=== PATIENT | male | born 1945 | race Caucasian/White ===

== ENCOUNTER 2017-05-05 11:45 | Emergency (ER) | payer MEDICARE, OTHER ==
[2017-05-05 11:58] VITALS: BMI 30.7
--- NOTE | 2017-05-05 12:38 | PDOC ---
Attending Attestation - HPI HPI: 05/05/17 13:46 The patient is a 71 year old male with a significant PMH of HTN and hyperlipidemia who presents to the emergency department with hematuria beginning approximately 12 hours ago. He reports about 3 episodes of hematuria since 1AM this morning. He denies dysuria. He denies any other complaints. Allergies: NKDA PCP: Dr. Andre Ho Urologist: Dr. Nassar - Physicial Exam PE: 05/05/17 14:27 GENERAL: Awake, alert, and fully oriented, in no acute distress HEAD: No signs of trauma EYES: PERRLA, EOMI, sclera anicteric, conjunctiva clear ENT: Auricles normal inspection, hearing grossly normal, nares patent, oropharynx clear without exudates. Moist mucosa NECK: Normal ROM, supple, no lymphadenopathy, JVD, or masses LUNGS: Breath sounds equal, clear to auscultation bilaterally. No wheezes, and no crackles HEART: Regular rate and rhythm, normal S1 and S2, no murmurs, rubs or gallops ABDOMEN: Soft, nontender, normoactive bowel sounds. No guarding, no rebound. No masses EXTREMITIES: Normal range of motion, no edema. No clubbing or cyanosis. No cords, erythema, or tenderness NEUROLOGICAL: Cranial nerves II through XII grossly intact. Normal speech, normal gait SKIN: Warm, Dry, normal turgor, no rashes or lesions noted. - Medical Decision Making 05/05/17 14:[address] John regarding this patient. <Eliezer Hernandez - Last Filed: 05/05/17 14:33> - Resident Resident Name: Jorge Ortega - ED Attending Attestation I have performed the following: I have examined & evaluated the patient, The case was reviewed & discussed with the resident, I agree w/resident's findings & plan, Exceptions are as noted - Medical Decision Making 05/05/17 12:38 I, Dr. Radha Torres, DO, attest that this document has been prepared under my direction and personally reviewed by me in its entirety. I further attest, that it accurately reflects all work, treatment, procedures and medical decision -making performed by me. 05/05/17 15:04 a/p: 71yo male with painless hematuria -will check labs and UA -hx of prostate CA -will obtain noncon ct to r/o further worsening of prostate ca -will discuss with urology pt nontoxic in appearance <Radha Torres - Last Filed: 05/05/17 15:04>
[2017-05-05] MEDS ORDERED: SODIUM CHLORIDE 0.9% 1000 ML INFUS.BAG IV ONE (12:42)
--- NOTE | 2017-05-05 12:52 | PDOC ---
History of Present Illness - General Chief Complaint: Hematuria Stated Complaint: URINARY PROBLEM Time Seen by Provider: 05/05/17 12:31 History Source: Patient Exam Limitations: No Limitations - History of Present Illness Initial Comments: 05/05/17 12:43 The patient is a 71M with a PMH of HTN and HLD who presents to the ED with complaints of hematuria since 1am this morning. He denies any trauma to the area. He has had 3 episodes of painless hematuria since and states that his most recent episode of urination was much less. He also admits to on and off kidney pain, R > L. He currently denies any pain including CP, renal pain, SOB, nausea, vomiting, lightheadedness, palpitations. He has no other complaints. Urologist: Dr. Nassar PCP: Dr. Andre Ho Past History - Past Medical History Allergies/Adverse Reactions: Allergies Allergy/AdvReac Type Severity Reaction Status Date / Time avocado Allergy Mild Nausea Verified 05/05/17 11:59 Home Medications: Ambulatory Orders Aspirin [ASA -] 81 mg PO DAILY 02/03/13 Lisinopril [Prinivil -] 40 mg PO DAILY 02/03/13 Metoprolol Tartrate [Lopressor -] 50 mg PO BID 02/03/13 Omeprazole [Prilosec (RX)] 20 mg PO DAILY 02/03/13 Tamsulosin HCl [Flomax -] 0.4 mg PO DAILY 02/03/13 Nifedipine [Nifedical Xl] 30 mg PO DAILY 02/10/15 Atorvastatin Ca [Lipitor] 20 mg PO HS #30 tablet 02/18/15 Anemia: No Asthma: No Cancer: No Cardiac Disorders: No CVA: No COPD: No CHF: No Dementia: No Diabetes: No GI Disorders: No Disorders: Yes (BPH) HTN: Yes Hypercholesterolemia: Yes Liver Disease: No Seizures: No Thyroid Disease: No - Surgical History Abdominal Surgery: Yes Appendectomy: Yes Cardiac Surgery: Yes (ANGIOGRAM) Cholecystectomy: No Lung Surgery: No Neurologic Surgery: No Orthopedic Surgery: No - Suicide/Smoking/Psychosocial Hx Smoking Status: No Smoking History: Never smoked Number of Cigarettes Smoked Daily: 0 Information on smoking cessation initiated: No Hx Alcohol Use: No Drug/Substance Use Hx: No Substance Use Type: None Hx Substance Use Treatment: No Review of Systems - Review of Systems Able to Perform ROS?: Yes Comments:: 05/05/17 12:54 GENERAL/CONSTITUTIONAL: No fever or chills. No weakness. HEAD, EYES, EARS, NOSE AND THROAT: No change in vision. No ear pain or discharge. No sore throat. GASTROINTESTINAL: No nausea, vomiting, diarrhea, constipation, or abdominal pain. GENITOURINARY: Positive for hematuria. No dysuria, frequency, or change in urination. CARDIOVASCULAR: No chest pain, palpitations, or lightheadedness. RESPIRATORY: No cough, wheezing, shortness of breath, or hemoptysis. MUSCULOSKELETAL: No joint or muscle swelling or pain. No neck or back pain. SKIN: No rash or lesions. NEUROLOGIC: No headache, numbness, tingling, weakness, loss of consciousness, or change in strength/sensation. ENDOCRINE: No increased thirst. No abnormal weight change. HEMATOLOGIC/LYMPHATIC: No anemia, easy bleeding, or history of blood clots. ALLERGIC/IMMUNOLOGIC: No hives or skin allergy. Is the patient limited Divehi proficient: No *Physical Exam - Vital Signs Last Vital Signs Temp Pulse Resp BP Pulse Ox 98 F 101 H 18 145/96 98 05/05/17 11:55 05/05/17 11:55 05/05/17 11:55 05/05/17 11:55 05/05/17 11:55 - Physical Exam Comments: 05/05/17 13:07 GENERAL: Well developed, well nourished. Awake and alert. No acute distress. HEENT: Normocephalic, atraumatic. Hearing grossly normal. Moist mucous membranes. NECK: Supple. Full ROM. No JVD. Carotid pulses 2+ and symmetric, without bruits. CARDIOVASCULAR: Regular rate and rhythm. No murmurs, rubs, or gallops. Distal pulses are 2+ and symmetric. PULMONARY: No evidence of respiratory distress. Lungs clear to auscultation bilaterally. No wheezing, rales or rhonchi. ABDOMINAL: Soft. Non-tender. Non-distended. No rebound or guarding. No organomegaly. Normoactive bowel sounds. GENITOURINARY: No CVA tenderness bilaterally. MUSCULOSKELETAL: Normal range of motion at all joints. No bony deformities or tenderness. EXTREMITIES: No cyanosis. No clubbing. No edema. No calf tenderness. SKIN: Warm and dry. Normal capillary refill. No rashes. No jaundice. NEUROLOGICAL: Alert, awake, appropriate. Cranial nerves 2-12 intact. Normal speech. Gait is normal without ataxia. PSYCHIATRIC: Cooperative. Good eye contact. Appropriate mood and affect. ED Treatment Course - LABORATORY CBC & Chemistry Diagram: 05/05/17 13:03 05/05/17 13:03 Medical Decision Making - Medical Decision Making 05/05/17 13:08 The patient is a 71 M who is presenting with painless hematuria. I am concerned for bladder CA, renal stone, or hemorrhagic cystitis. Will order labs/imaging to assess patient. 05/05/17 14:35 UA shows 2+ blood. I have spoke with Dr. Yeung who is covering for Dr. Nassar and he says to follow up with the clinic Sunday and they will refer him to a urologist if he has insurance issues. Will inform patient of this call. Hgb stable. Hemodynamically stable. 05/05/17 15:03 CTAP does not show any acute pathology. I instructed him to f/u with Dr. Nassar on Sunday. The patient agrees and is ready for d/c. *DC/Admit/Observation/Transfer Diagnosis at time of Disposition: Hematuria Qualifiers: Hematuria type: other microscopic Qualified Code(s): R31.29 - Other microscopic hematuria; R31.2 - Other microscopic hematuria - Discharge Dispostion Disposition: HOME Condition at time of disposition: Stable Admit: No - Referrals Referrals: Andre Ho MD [Primary Care Provider] - Steve Nassar MD., MD [Staff Physician] - - Patient Instructions Printed Discharge Instructions: DI for Hematuria Additional Instructions: Please return to the ER if symptoms persist, worsen, or new symptoms arise. Please follow up with your primary care physician in 2-3 days. Please follow up with Dr. Nassar on Sunday. Please return to the ER if you have any signs or symptoms of chest pain, shortness of breath, uncontrollable fever, chills, nausea, vomiting, numbness, tingling, or weakness in any part of your body, changes in vision, or slurred speech. - Post Discharge Activity
[2017-05-05 13:16] LABS: BASO # 0.1 # (0.1-1); BASO % 1.3 % (0-2.0); EOS # 0.2 # (0-4.5); EOS % 3.3 % (0-4.5); LYMPH # 1.3 (8-40); MCH 29.9 pg (25.7-33.7); MCHC 32.6 g/dl (32.0-35.9); MEAN CELL VOLUME 91.8 fl (80-96); MONO # 0.5 # (3.8-10.2); NEUT % 59.5 % (42.8-82.8); PLATELET COUNT 256 K/MM3 (134-434); RDW 13.4 % (11.9-15.9)
[2017-05-05 13:21] LABS: URINE APPEARANCE CLEAR; URINE BILIRUBIN NEGATIVE (NEGATIVE); URINE BLOOD 2+ (NEGATIVE); URINE COLOR LTYELLOW; URINE GLUCOSE (UA) NEGATIVE (NEGATIVE); URINE KETONE NEGATIVE (NEGATIVE); URINE LEUK ESTERASE NEGATIVE (NEGATIVE); URINE NITRITE NEGATIVE (NEGATIVE); URINE PROTEIN NEGATIVE (NEGATIVE); URINE UROBILINOGEN NEGATIVE mg/dL (0.2-1.0)
[2017-05-05 13:30] LABS: URINE RBC 150 /hpf (0-3)
[2017-05-05 13:46] LABS: ALBUMIN 3.8 g/dl (3.4-5.0); ANION GAP 9 (8-16); CALCIUM 9.4 mg/dL (8.5-10.1); CO2 27 mmol/L (21-32); GLUCOSE,RANDOM 137 mg/dL (74-106); SGOT/AST 11 U/L (15-37); SGPT/ALT 32 U/L (12-78)
[2017-05-05 13:48] LABS: ALK PHOS 81 U/L (45-117); BILIRUBIN,TOTAL 0.4 mg/dL (0.2-1.0); CREATININE 0.9 mg/dL (0.7-1.3); TOT PROT 6.8 g/dl (6.4-8.2)
[2017-05-05] MEDS ORDERED: ACETAMINOPHEN 325 MG TABLET (FP) PO ONE (15:03)
[2017-05-05] MEDS ORDERED: ACETAMINOPHEN 325 MG TABLET (FP) ONE (15:08)
[2017-05-05 15:15] LABS: URINE LEUK ESTERASE Negative (NEGATIVE)
[2017-05-05 15:23] VITALS: BP 138/92; PULSE 92; TEMP 97.9
== END 2017-05-05 15:23 | disposition home or self-care (01) ==
LOC: JER 11:45
DX: R31.29 Other microscopic hematuria (principal); Z85.46 Personal history of malignant neoplasm of prostate
CPT/HCPCS: 36415; 74176-TC; 80053; 81003; 81015; 85025; 87086; 99283-25

== ENCOUNTER 2018-03-15 11:29 | Observation (INO) | payer MEDICARE ==
--- NOTE | 2018-03-15 12:08 | PDOC ---
History of Present Illness <Niki Diaz - Last Filed: 03/15/18 12:41> - General History Source: Patient Exam Limitations: No Limitations - History of Present Illness Initial Comments: 03/15/18 15:26 This patient is a 72 year old nepali-speaking male, with a PMHx of HTN, HLD, and BPH, who presents with sudden-onset LUE weakness since 11am. The patient states that a similar episode occured 2 months ago in which he experienced the same left sided upper extremitity weakness that lasted for 4-5 hours. He states that it resovled on its on and he did not see a doctor. Today he comes in because this is the second time that he has experieced this LUE weakness. PCP: Chiqui Rios Denies recent headache, chest pain, palpitations, nausea, or vomiting. He denies any recent neck, back, or abdominal pain. He denies any changes in speech , numbness or tingling. <Panchito Palacio - Last Filed: 03/15/18 15:26> - General Chief Complaint: CVA/TIA Stated Complaint: ARM NUMBNESS Time Seen by Provider: 03/15/18 12:01 Past History <Niki Diaz - Last Filed: 03/15/18 12:41> - Past Medical History Anemia: No Asthma: No Cancer: No Cardiac Disorders: No CVA: No COPD: No CHF: No Dementia: No Diabetes: No GI Disorders: No Disorders: Yes (BPH) HTN: Yes Hypercholesterolemia: Yes Liver Disease: No Seizures: No Thyroid Disease: No - Surgical History Abdominal Surgery: Yes Appendectomy: Yes Cardiac Surgery: Yes (ANGIOGRAM) Cholecystectomy: No Lung Surgery: No Neurologic Surgery: No Orthopedic Surgery: No - Suicide/Smoking/Psychosocial Hx Smoking Status: No Smoking History: Former smoker Have you smoked in the past 12 months: No Number of Cigarettes Smoked Daily: 0 Information on smoking cessation initiated: No Hx Alcohol Use: Yes Drug/Substance Use Hx: No Substance Use Type: Alcohol Hx Substance Use Treatment: No <Panchito Palacio - Last Filed: 03/15/18 15:26> - Past Medical History Allergies/Adverse Reactions: Allergies Allergy/AdvReac Type Severity Reaction Status Date / Time avocado Allergy Mild Nausea Verified 03/15/18 11:58 Home Medications: Ambulatory Orders Aspirin [ASA -] 81 mg PO DAILY 02/03/13 Lisinopril [Prinivil -] 40 mg PO DAILY 02/03/13 Metoprolol Tartrate [Lopressor -] 50 mg PO BID 02/03/13 Omeprazole [Prilosec (RX)] 20 mg PO DAILY 02/03/13 Tamsulosin HCl [Flomax -] 0.4 mg PO DAILY 02/03/13 Nifedipine [Nifedical Xl] 30 mg PO DAILY 02/10/15 Atorvastatin Ca [Lipitor] 20 mg PO HS #30 tablet 02/18/15 Review of Systems - Review of Systems Able to Perform ROS?: Yes Comments:: 03/15/18 15:26 CONSTITUTIONAL: No reported: Fever, Chills, Diaphoresis, Generalized Weakness, Malaise, Loss of Appetite HEENT: No reported: Rhinorrhea, Nasal Congestion, Throat Pain, Throat Swelling, Difficulty Swallowing, Mouth Swelling, Ear Pain, Eye Pain, Visual Changes CARDIOVASCULAR: No reported: Chest Pain, Syncope, Palpitations, Irregular Heart Rate, Lightheadedness, Peripheral Edema RESPIRATORY: No reported: Cough, Shortness of Breath, SOB with Exertion, Orthopnea, Wheezing , Stridor, Hemoptysis GASTROINTESTINAL: No reported: Abdominal pain, Abdominal Distension, Nausea, Vomiting, Diarrhea, Constipation, Melena, Hematochezia GENITOURINARY: No reported: Dysuria, Frequency, Urgency, Hesitancy, Flank Pain, Genital Pain MUSCULOSKELETAL: No reported: Myalgia, Arthralgia, Joint Swelling, Back pain, Neck Pain SKIN: No reported: Rash, Itching, Pallor HEMEATOLOGIC/IMMUNOLOGIC: No reported: Easy Bleeding, Easy Bruising, Lymphadenopathy, Frequent infections ENDOCRINE: No reported: Unexplained Weight Gain, Unexplained Weight Loss, Heat Intolerance , Cold Intolerance NEUROLOGIC: Reported: LUE weakness. No reported: Headache, Paresthesias, Vertigo, Lightheadedness, Unsteady Gait, Seizure, Mental Status Changes, Incontinence PSYCHIATRIC: No reported: Anxiety, Depression <Hakeem,Panchito - Last Filed: 03/15/18 15:26> *Physical Exam - Vital Signs Last Vital Signs Temp Pulse Resp BP Pulse Ox 98.2 F 97 H 16 120/55 L 99 03/15/18 11:45 03/15/18 11:45 03/15/18 11:45 03/15/18 11:45 11/02/18 11:45 <Niki Diaz - Last Filed: 03/15/18 12:41> - Vital Signs Last Vital Signs Temp Pulse Resp BP Pulse Ox 98.2 F 97 H 16 120/55 L 99 03/15/18 11:45 03/15/18 11:45 03/15/18 11:45 03/15/18 11:45 03/15/18 11:45 - Physical Exam Comments: 03/15/18 15:26 GENERAL: The patient is awake, alert, and fully oriented, Nontoxic - in no acute distress. HEAD: Normocephalic, atraumatic. EYES: extraocular movements intact, sclera anicteric, conjunctiva clear. ENT: Normal voice, Moist mucous membranes. NECK: Normal range of motion, supple LUNGS: Breath sounds equal, clear to auscultation bilaterally. No wheezes, no rhonchi, no rales. HEART: Regular rate and rhythm, without murmur, rub or gallop. ABDOMEN: Soft, nontender, No guarding, no rebound.No CVA tenderness EXTREMITIES: Normal range of motion, no edema. No cyanosis. No erythema, or tenderness. NEUROLOGICAL: Left arm drift. Equal sensation intact bilaterally. Finger to nose intact. No facial assymetry, Normal speech. PSYCH: Normal mood, normal affect. SKIN: Warm, Dry, normal turgor, <Gage Palacioan - Last Filed: 03/15/18 15:26> NIH Stroke Scale - Last Known Well Date/Time & Onset Date Last Known Well: 03/15/18 Time Last Known Well: 11:00 - Initial Evaluation Level of consciousness: Alert Ask patient the month and their age: Answers both correctly Ask patient to open & close eyes; make fist and let go: Obeys both correctly Best gaze (horizontal eye movement): Normal Visual field testing: No visual field loss Facial paresis (Show teeth/raise eyebrows/close eyes tight): Normal symmetrical movement Motor Function: Left Arm: Drift Motor Function: Right Arm: Normal (extends arm 90 (or 45) degrees for 10 seconds without drift Motor Function: Left Leg: Normal (extends leg 30 degrees for 5 seconds without drift) Motor Function: Right Leg: Normal (extends leg 30 degrees for 5 seconds without drift) Limb Ataxia: No ataxia Sensory(Use pinprick test arms,legs,trunk,face/side to side): Normal Best language (Describe picture, name items, read sentences): No Aphasia Dysarthria (read several words): Normal articulation Extinction and Inattention: No abnormality - Total Score NIH Stroke Scale Score: 1 <Panchito Palacio - Last Filed: 03/15/18 15:26> tPA Exclusion Checklist 0-3hr - Time Elapsed Date last known well: 03/15/18 Time last known well: 11:00 Elaspsed time: Day(s) and 4 Hour(s) and 26 Minutes - Thrombolytic Therapy Candidate Is the patient eligible for Thrombolytic Therapy?: Yes - Exclusion Criteria 0-3hr SBP greater than 185 or DBP greater than 110mmHg despite tx: No Recent IC/spinal surgery,head trauma or stroke w/in last 3mo: No Hx of previous IC hemorrhage, IC neoplasm, AVM or aneurysm: No Active internal bleeding: No Blding diathesis(low plt ct, inc PTT,INR>1.7 or use of NOAC): No Symptoms suggest subarachnoid hemorrhage: No CT demonstrates multilobar infarct(>1/3 cerebral hemiphere): No Arterial puncture at noncompressible site in previous 7 days: No Blood glucose concentration less than 50mg/dL (2.7mmol/L): No - Relative Exclusion Criteria 0-3h Life expectancy <1yr/severe co-morbid illness/SAS ANALYST on admit: No : No Patient/family refused: No Rapid improvement: No Stroke severity too mild: Yes Recent acute DE (w/in previous 3 months): No Seizure at onset with postictal residual neuro impairments: No Major surgery or serious trauma w/in previous 14 days: No Recent GI or hemorrhage (w/in previous 21 days): No - Ineligibility reason(s) Reasons No tPA given: See reason(s) noted above <Panchito Palacio - Last Filed: 03/15/18 15:26> Heart Score/ECG Review - ECG Impressions Comment:: 03/15/18 14:55 Twelve-lead EKG was performed and reviewed by me. There is normal sinus rhythm with a rate of 103 The axis is normal. The intervals are normal. There is normal R wave progression There are no ST or T wave abnormalities. Impression: sinus tachy <Panchito Palacio - Last Filed: 03/15/18 15:26> Critical Care Time/MDM Note - Medical Decision Making Note: Head CT Impression: Mild volume loss. No gross acute intracranial pathology is identified. Correlate clinically to determine further evaluation and follow-up. Reported By: Bonifacio Guthrie MD 03/15/18 1225 <Niki Diaz - Last Filed: 03/15/18 12:41> - Medical Decision Making Note: 03/15/18 12:17 72y M htn, hl, ?tia, prostate BPH in the past presents with sudden onset of L arm weakness approx 1 hr prior to presentation. Pt without other complaints including headache, dizziness, neck pain, back pain, cp sob, palitations, abd pain, n/v, numbness/tingling/weakness. on exam the pt is in no distress has mild drift of the LUE will obtain blood work code webb was alled upon arrival case discussed with dr. Saldaña - agree with mangement NIHSS = 1, will defer tpa at tihs point due to mild sypmtoms pt notes he had similar sypmtoms 2 month ago that resolved spontaneously 03/15/18 13:[address] head negative labs unremrakble pts weakness improved, currently strenght symmetric bl, no drift asa given will admit for TIA workup will notify dr. rios 03/15/18 13:37 dr. rois admits to hospitalist service case discussed with dr. Dial agree with obs admission s <Panchito Palacio - Last Filed: 03/15/18 15:26> *DC/Admit/Observation/Transfer - Attestations Scribe Attestion: 03/15/18 12:43 Documentation prepared by Niki Diaz, acting as medical records director for Panchito Palacio MD. <Niki Diaz - Last Filed: 03/15/18 12:41> - Discharge Dispostion Decision to Admit order: Yes <Panchito Palacio - Last Filed: 03/15/18 15:26> Diagnosis at time of Disposition: TIA (transient ischemic attack) - Discharge Dispostion Condition at time of disposition: Stable
[2018-03-15] MEDS: SODIUM CHLORIDE 1,000 ML IV SCH ×2 (12:24→23:48)
[2018-03-15 12:50] LABS: BASO % 1.1 % (0-2.0); EOS % 3.1 % (0-4.5); HEMATOCRIT 46.6 % (35.4-49); HEMOGLOBIN 15.6 GM/dL (11.7-16.9); LYMPH % 24.9 % (8-40); MCH 30.7 pg (25.7-33.7); MCHC 33.4 g/dl (32.0-35.9); MEAN PLT VOLUME 8.5 fl (7.5-11.1); MONO % 7.1 % (3.8-10.2); NEUT % 63.8 % (42.8-82.8); PLATELET COUNT 290 K/MM3 (134-434); RBC 5.07 M/mm3 (4.00-5.60); RDW 13.4 % (11.9-15.9); WHITE BLOOD COUNT 5.6 K/mm3 (4.0-10.0)
[2018-03-15] MEDS ORDERED: ASPIRIN 81 MG CHEWABLE TABLETS PO ONE (13:05)
[2018-03-15 13:09] LABS: ALBUMIN 3.8 g/dl (3.4-5.0); ALK PHOS 103 U/L (45-117); ANION GAP 10 MMOL/L (8-16); BILIRUBIN,TOTAL 0.5 mg/dL (0.2-1); BLOOD UREA NITROGEN 12 mg/dL (7-18); CHLORIDE 104 mmol/L (98-107); CHOLESTEROL 177 mg/dL (50-200); CO2 24 mmol/L (21-32); CREATININE 0.7 mg/dL (0.55-1.3); GLUCOSE,RANDOM 122 mg/dL (74-106); HDL CHOLESTEROL 64 mg/dL (40-60); POTASSIUM 4.2 mmol/L (3.5-5.1); SGOT/AST 22 U/L (15-37); SGPT/ALT 28 U/L (13-61); SODIUM 137 mmol/L (136-145); TOT PROT 7.2 g/dl (6.4-8.2); TRIGLYCERIDES 135 mg/dL (0-150)
[2018-03-15 13:15] LABS: INR 0.98 (0.83-1.09); PROTHROMBIN TIME (PATIENT) 11.6 SEC (9.7-13.0)
[2018-03-15 13:38] LABS: URINE APPEARANCE CLEAR; URINE BILIRUBIN NEGATIVE (<2.0 mg/dL); URINE COLOR LTYELLOW; URINE GLUCOSE (UA) NEGATIVE (NEGATIVE); URINE KETONE NEGATIVE (NEGATIVE); URINE LEUK ESTERASE NEGATIVE (NEGATIVE); URINE NITRITE NEGATIVE (NEGATIVE); URINE PROTEIN NEGATIVE (NEGATIVE); URINE UROBILINOGEN NEGATIVE mg/dL (0.2-1.0)
--- NOTE | 2018-03-15 13:43 | HP ---
Admitting History and Physical - Primary Care Physician PCP: Chiqui Miller - Admission Chief Complaint: Left Hand nubness History of Present Illness: 72 yrs old non diabetic patient ex smoker H/O HTN, Dyslipedemia present with Left hand weakness no associated head ache, sensory symptoms, chest pain, palpitation, head ache diplopia started a 2-3 hrs prior to arrival to Ed gradually resolved at the time of examination, CT head and EKG normal, at the time of examination weakness resolved, patioent had similar episode 2 months ago that lasted 2-3 hrs resolved without any intervention, never had Neurology or Cardiac w/u in the past, patient is schedule for colonoscopy next wk so he was off ASA for past few days otherwise compliant with meds. - Past Medical History Cardiovascular: Yes: HTN, Hyperlipdemia. No: AFIB, Aneurysm, Aortic Insufficiency, Aortic Stenosis, CAD, CHF, Deep Vein Thrombosis, DE, Mitral Insufficiency, Mitral Stenosis, Murmur, Pulmonary Hypertension, Other Renal/: Yes: BPH. No: Renal Failure, Renal Inusuff, Cancer, Hematuria, Hemodialysis, Neurogenic Bladder, Renal Calculi, UTI, Other - Smoking History Smoking history: Former smoker Have you smoked in the past 12 months: No Aproximately how many cigarettes per day: 0 - Alcohol/Substance Use Hx Alcohol Use: Yes Home Medications - Allergies Allergies/Adverse Reactions: Allergies Allergy/AdvReac Type Severity Reaction Status Date / Time avocado Allergy Mild Nausea Verified 03/15/18 11:58 - Home Medications Home Medications: Ambulatory Orders Aspirin [ASA -] 81 mg PO DAILY 02/03/13 Lisinopril [Prinivil -] 40 mg PO DAILY 02/03/13 Metoprolol Tartrate [Lopressor -] 50 mg PO BID 02/03/13 Omeprazole [Prilosec (RX)] 20 mg PO DAILY 02/03/13 Tamsulosin HCl [Flomax -] 0.4 mg PO DAILY 02/03/13 Nifedipine [Nifedical Xl] 30 mg PO DAILY 02/10/15 Atorvastatin Ca [Lipitor] 20 mg PO HS #30 tablet 02/18/15 Family Disease History - Family Disease History Family History: Unremarkable Review of Systems - Review of Systems Constitutional: denies: Chills, Diaphoresis, Fever, Lethargy HENT: denies: Difficult Swallowing, Ear Discharge, Ear Pain Neck: denies: Decreased ROM, Lumps, Pain on Movement Cardiovascular: denies: Chest Pain, Edema, Shortness of Breath Respiratory: denies: Cough, Exercise Intolerance Gastrointestinal: denies: Abdominal Pain, Bloating Genitourinary: denies: Burning, Discharge Musculoskeletal: denies: Back Pain, Crepitus, Decreased ROM Neurological: reports: Weakness (Left UE). denies: Change in LOC, Change in Speech, Confusion, Dizziness, Headache, Incoordination, Numbness, Parasthesia Hematology/Lymphatic: denies: Easily Bruised, Excessive Bleeding Physical Examination Vital Signs: Vital Signs Temperature 98.2 F 03/15/18 11:45 Pulse Rate 84 03/15/18 12:39 Respiratory Rate 16 03/15/18 12:39 Blood Pressure 112/71 03/15/18 12:39 O2 Sat by Pulse Oximetry (%) 98 03/15/18 12:39 Constitutional: No Distress. No: Anxious, Cachectic HEENT: Atraumatic, Normocephalic Neck: Supple, Trachea Midline. No: Decreased ROM, Lymphadenopathy Cardiovascular: Regular Rate and Rhythm, S1, S2. No: Bruit, JVD, Gallop, Murmur Respiratory: Regular, CTA Bilaterally Gastrointestinal: Normal Bowel Sounds, Soft. No: Tenderness, Epigastrium Extremities: No: Calf Tenderness, no Edema, Peripheral Pulses: Left Doralis Pedis: 1+, Right Dorsalis Pedis: 1+ Neurological: Yes: Alert, Oriented, Motor Strength: WNL, LUE, LLE, RUE, RLE Labs: CBC, BMP 03/15/18 12:24 03/15/18 12:24 Imaging - Results Cat Scan: Report Reviewed (Normal) EKG: Report Reviewed (HR 108 VA 154 QRS [address] T changes) Problem List - Problems (1) TIA (transient ischemic attack) Assessment/Plan: Recurrent symptoms lasted 2 hrs now resolved considering ABCD2 score need inpatient evaluation for stroke admit to [facility], ASA 81 mg Cont Lipitor F/ U ECHO, Carotid Doppler MRI/MRA (as per Neuro if agrees) Code(s): G45.9 - TRANSIENT CEREBRAL ISCHEMIC ATTACK, UNSPECIFIED (2) HTN (hypertension) Assessment/Plan: Optimize BP control will cont Metoprolol target 160/90 Hold CCB and ACEI Code(s): I10 - ESSENTIAL (PRIMARY) HYPERTENSION (3) Hyperlipidemia Assessment/Plan: Cont Lipitor F/U Lipid panel and TSH Code(s): E78.5 - HYPERLIPIDEMIA, UNSPECIFIED (4) Abdominal obesity Assessment/Plan: Nutrional consult as pot patient Code(s): E65 - LOCALIZED ADIPOSITY (5) BPH (benign prostatic hyperplasia) Assessment/Plan: cont Flomax Code(s): N40.0 - BENIGN PROSTATIC HYPERPLASIA WITHOUT LOWER URINRY TRACT SYMP
[2018-03-15] MEDS ORDERED: ASPIRIN 81 MG CHEWABLE TABLETS ONE (13:45)
--- NOTE | 2018-03-15 16:03 | ECHO ---
Name: YOBANY MCKEE Exam:Adult Echocardiogram Study Date: 03/15/2018 03:34 PM Age: 72 yrs Reason For Study: tia Height: 65 in Weight: 190 lb BSA: 1.9 m2 MMode/2D Measurements & Calculations IVSd: 0.84 cm Ao root diam: 3.1 cm LVIDd: 4.6 cm LA dimension: 3.3 cm LVIDs: 3.3 cm LVPWd: 0.84 cm EDV(Teich): 97.2 ml LVOT diam: 2.0 cm ESV(Teich): 45.5 ml TAPSE: 2.6 cm RV S Mono: 15.3 cm/sec Doppler Measurements & Calculations MV E max mono: 78.1 cm/sec Med Peak E' Mono: 4.9 cm/sec MV A max mono: 93.6 cm/sec Med E/e': 16.0 MV E/A: 0.83 Lat Peak E' Mono: 10.7 cm/sec MV dec time: 0.15 sec Lat E/e': 7.3 Left Ventricle Ejection Fraction = 50-55%. Left ventricular systolic function is normal. The transmitral spectral Do ppler flow pattern is suggestive of impaired LV relaxation. Right Ventricle The right ventricle is grossly normal size. The right ventricular systolic function is grossly normal . Atria Normal left and right atrial size and function. Mitral Valve The mitral valve is normal in structure and function. There is no mitral valve stenosis. There is no mitral regurgitation noted. Tricuspid Valve The tricuspid valve is normal in structure and function. There is mild tricuspid regurgitation. Aortic Valve The aortic valve is trileaflet. No hemodynamically significant valvular aortic stenosis. No aortic regurgitation is present. Pulmonic Valve The pulmonic valve is not well seen, but is grossly normal. There is no pulmonic valvular stenosis. T here is no pulmonic valvular regurgitation. Great Vessels The aortic root is normal size. Pericardium/Pleura There is no pericardial effusion. Interpretation Summary Ejection Fraction = 50-55%. Left ventricular systolic function is normal. The transmitral spectral Doppler flow pattern is suggestive of impaired LV relaxation. The right ventricular systolic function is grossly normal. There is mild tricuspid regurgitation. There is no pericardial effusion. MD Arndt *Ibrahima 03/15/2018 04:02 PM
--- NOTE | 2018-03-15 17:17 | CON.NEURO ---
Consult - Past Medical History Cardio/Vascular: Yes: HTN, Hyperlipdemia. No: AFIB, Aneurysm, Aortic Insufficiency, Aortic Stenosis, CAD, CHF, Deep Vein Thrombosis, NE, Mitral Insufficiency, Mitral Stenosis, Murmur, Pulmonary Hypertension, Other Renal/: Yes: BPH. No: Renal Failure, Renal Inusuff, Cancer, Hematuria, Hemodialysis, Neurogenic Bladder, Renal Calculi, UTI, Other - Alcohol/Substance Use Hx Alcohol Use: Yes - Smoking History Smoking history: Former smoker Have you smoked in the past 12 months: No Aproximately how many cigarettes per day: 0 Home Medications - Allergies Allergies/Adverse Reactions: Allergies Allergy/AdvReac Type Severity Reaction Status Date / Time avocado Allergy Mild Nausea Verified 03/15/18 11:58 - Home Medications Home Medications: Ambulatory Orders Aspirin [ASA -] 81 mg PO DAILY 02/03/13 Lisinopril [Prinivil -] 40 mg PO DAILY 02/03/13 Metoprolol Tartrate [Lopressor -] 50 mg PO BID 02/03/13 Omeprazole [Prilosec (RX)] 20 mg PO DAILY 02/03/13 Tamsulosin HCl [Flomax -] 0.4 mg PO DAILY 02/03/13 Nifedipine [Nifedical Xl] 30 mg PO DAILY 02/10/15 Atorvastatin Ca [Lipitor] 20 mg PO HS #30 tablet 02/18/15 Physical Exam-Neuro Vital Signs: Vital Signs Temperature 98.4 F 03/15/18 15:17 Pulse Rate 67 03/15/18 15:17 Respiratory Rate 16 03/15/18 15:17 Blood Pressure 132/80 03/15/18 15:17 O2 Sat by Pulse Oximetry (%) 98 03/15/18 15:17 Labs: CBC, BMP 03/15/18 12:24 03/15/18 12:24 INR, PTT INR 0.98 (0.83-1.09) 03/15/18 12:24 Assessment/Plan cc Transient left arm weakness HPI 72 year old male , hstory of HTN, HLD. He was at work and his left arm get paralyzed and recovered in 3 minute. He has similar symptoms two months ago. He denies any headhace, seizure, motor weakness any other part of body, no numbness or dysphagia dysarthria or cognitive difficuLTY His ct head is normal, he is not taking statin regularly. He was prescribed aspirin and was not taking, he is non smoker, and no CAD. PMH as above. - Allergies Allergies/Adverse Reactions: Allergies Allergy/AdvReac Type Severity Reaction Status Date / Time avocado Allergy Mild Nausea Verified 03/15/18 11:58 Home Medications: Aspirin [ASA -] 81 mg PO DAILY 02/03/13 not taking Lisinopril [Prinivil -] 40 mg PO DAILY 02/03/13 Metoprolol Tartrate [Lopressor -] 50 mg PO BID 02/03/13 Omeprazole [Prilosec (RX)] 20 mg PO DAILY 02/03/13 Tamsulosin HCl [Flomax -] 0.4 mg PO DAILY 02/03/13 Nifedipine [Nifedical Xl] 30 mg PO DAILY 02/10/15 Atorvastatin Ca [Lipitor] 20 mg PO HS #30 tablet 02/18/15 not taking reguylarly FH,Social Hx, ROS reviewed in chart Neurological examination afebril, CT 6, BP 132/80 , RR 16 Alert oriented x 3, seech and memory is normal CN all intact, eomi, pupils rective, no face asymmetry Motor 5/5 all ext sensation is normal FTN,HTs is normal, sensation is normal ct head unremarkable carotid ultrasound is normal mri of brain pending Assessment- TIA, risk factor HLD,HTN Plan MRI of brain, - continue aspirin and high dose of statin - life style modificaiotns and stroke education Thanking you much Teodoro Saldaña MD
[2018-03-15] MEDS ORDERED: ATORVASTATIN CA 80 MG TABLET (FP) PO SCH (22:00)
[2018-03-15] MEDS ORDERED: METOPROLOL TARTRATE 50 MG TABLET (FP) ONE (22:27)
[2018-03-15] MEDS ORDERED: ATORVASTATIN CA 80 MG TABLET (FP) ONE (22:27)
[2018-03-15] MEDS: METOPROLOL TARTRATE 50 MG TABLET (FP) PO SCH (22:28)
[2018-03-16 00:22] VITALS: BMI 31.1
[2018-03-16 05:34] VITALS: BP 118/80; PULSE 60; TEMP 97.5
--- NOTE | 2018-03-16 07:28 | PN ---
Progress Note, Physician - Current Medication List Current Medications: Active Medications Aspirin (Asa -) 81 mg PO DAILY [facility] Atorvastatin Calcium (Lipitor -) 80 mg PO HS [facility] Last Admin: 03/15/18 22:27 Dose: 80 mg Sodium Chloride (Normal Saline -) 1,000 mls @ 42 mls/hr IV ASDIR [facility] Last Admin: 03/15/18 23:48 Dose: 42 mls/hr Metoprolol Tartrate (Lopressor -) 50 mg PO BID [facility] Last Admin: 03/15/18 22:28 Dose: 50 mg Nifedipine (Procardia Xl -) 30 mg PO DAILY [facility] Pantoprazole Sodium (Protonix -) 20 mg PO DAILY [facility] Tamsulosin HCl (Flomax -) 0.4 mg PO DAILY@0830 [facility] - Objective Vital Signs: Vital Signs Temperature 97.5 F L 03/16/18 05:28 Pulse Rate 60 03/16/18 05:28 Respiratory Rate 16 03/16/18 05:28 Blood Pressure 118/80 03/16/18 05:28 O2 Sat by Pulse Oximetry (%) 97 03/15/18 23:45 Constitutional: No Distress. No: Anxious, Cachectic HEENT: Atraumatic, Normocephalic Neck: Supple, Trachea Midline. No: Decreased ROM, Lymphadenopathy Cardiovascular: Regular Rate and Rhythm, S1, S2. No: Bruit, JVD, Gallop, Murmur Respiratory: Regular, CTA Bilaterally Gastrointestinal: Normal Bowel Sounds, Soft. No: Tenderness, Epigastrium Extremities: No: Calf Tenderness, no Edema, Peripheral Pulses: Left Doralis Pedis: 1+, Right Dorsalis Pedis: 1+ Neurological: Yes: Alert, Oriented, Motor Strength: WNL, LUE, LLE, RUE, RLE Labs: INR, PTT INR 0.98 (0.83-1.09) 03/15/18 12:24 Problem List - Problems (1) TIA (transient ischemic attack) Assessment/Plan: Recurrent symptoms lasted 2 hrs now resolved considering ABCD2 score need inpatient evaluation for stroke admit to [facility], ASA 81 mg Cont Lipitor F/ U ECHO, Carotid Doppler MRI/MRA (as per Neuro if agrees) Code(s): G45.9 - TRANSIENT CEREBRAL ISCHEMIC ATTACK, UNSPECIFIED (2) HTN (hypertension) Assessment/Plan: Optimize BP control will cont Metoprolol target 160/90 Hold CCB and ACEI Code(s): I10 - ESSENTIAL (PRIMARY) HYPERTENSION (3) Hyperlipidemia Assessment/Plan: Cont Lipitor F/U Lipid panel and TSH Code(s): E78.5 - HYPERLIPIDEMIA, UNSPECIFIED (4) Abdominal obesity Assessment/Plan: Nutrional consult as pot patient Code(s): E65 - LOCALIZED ADIPOSITY (5) BPH (benign prostatic hyperplasia) Assessment/Plan: cont Flomax Code(s): N40.0 - BENIGN PROSTATIC HYPERPLASIA WITHOUT LOWER URINRY TRACT SYMP
[2018-03-16] MEDS ORDERED: TAMSULOSIN HCL 0.4 MG CAP PO SCH (08:30)
[2018-03-16 08:31] LABS: BASO % 0.8 % (0-2.0); EOS % 4.4 % (0-4.5); HEMATOCRIT 43.5 % (35.4-49); HEMOGLOBIN 15.2 GM/dL (11.7-16.9); LYMPH % 24.3 % (8-40); MCH 32.3 pg (25.7-33.7); MCHC 35.1 g/dl (32.0-35.9); MEAN CELL VOLUME 92.2 fl (80-96); MEAN PLT VOLUME 8.4 fl (7.5-11.1); MONO % 10.1 % (3.8-10.2); NEUT % 60.4 % (42.8-82.8); PLATELET COUNT 261 K/MM3 (134-434); RBC 4.71 M/mm3 (4.00-5.60); RDW 13.4 % (11.9-15.9); WHITE BLOOD COUNT 5.6 K/mm3 (4.0-10.0)
[2018-03-16 08:59] LABS: ALBUMIN 3.4 g/dl (3.4-5.0); ALK PHOS 87 U/L (45-117); ANION GAP 11 MMOL/L (8-16); BILIRUBIN,TOTAL 0.6 mg/dL (0.2-1); BLOOD UREA NITROGEN 14 mg/dL (7-18); CALCIUM 8.4 mg/dL (8.5-10.1); CHLORIDE 106 mmol/L (98-107); CO2 24 mmol/L (21-32); CREATININE 0.7 mg/dL (0.55-1.3); GLUCOSE,RANDOM 86 mg/dL (74-106); POTASSIUM 4.2 mmol/L (3.5-5.1); SGOT/AST 14 U/L (15-37); SGPT/ALT 21 U/L (13-61); SODIUM 141 mmol/L (136-145); TOT PROT 6.4 g/dl (6.4-8.2)
[2018-03-16] MEDS: METOPROLOL TARTRATE 50 MG TABLET (FP) PO SCH (09:48)
--- NOTE | 2018-03-16 09:55 | DS ---
Physical Examination Vital Signs: Vital Signs Temperature 97.5 F L 03/16/18 05:28 Pulse Rate 60 03/16/18 05:28 Respiratory Rate 16 03/16/18 05:28 Blood Pressure 118/80 03/16/18 05:28 O2 Sat by Pulse Oximetry (%) 97 03/15/18 23:45 Constitutional: No Distress. No: Anxious, Cachectic HEENT: Atraumatic, Normocephalic Neck: Supple, Trachea Midline. No: Decreased ROM, Lymphadenopathy Cardiovascular: Regular Rate and Rhythm, S1, S2. No: Bruit, JVD, Gallop, Murmur Respiratory: Regular, CTA Bilaterally Gastrointestinal: Normal Bowel Sounds, Soft. No: Tenderness, Epigastrium Extremities: No: Calf Tenderness, no Edema, Peripheral Pulses: Left Doralis Pedis: 1+, Right Dorsalis Pedis: 1+ Neurological: Yes: Alert, Oriented, Motor Strength: WNL, LUE, LLE, RUE, RLE Labs: CBC, BMP 03/16/18 06:10 03/16/18 06:10 Discharge Summary Reason For Visit: TRANSIENT ISCHEMIC ATTACK Current Active Problems TIA (transient ischemic attack) (Acute) HTN Hypercholasterolemia BPH (benign prostatic hyperplasia) (Acute) Procedures: Principal: MRI Brain. CT Head;. Carotid Doppler. ECHO cardiogram Hospital Course: 72 yrs old non diabetic patient ex smoker H/O HTN, Dyslipedemia present with Left hand weakness no associated head ache, sensory symptoms, chest pain, palpitation, head ache diplopia started a 2-3 hrs prior to arrival to Ed gradually resolved at the time of examination, CT head and EKG normal,Carotid Doppler, ECHO are unremarkable MRI Brain shows no acute infarct . No arrhythmia nted on Telemonitor for 24 hrs LDL 100 and HbA1C 6, will educate the patient to be adherence with BP meds Statin and ASA. Condition: Stable - Instructions Diet, Activity, Other Instructions: Low salt Low Cholesterol Referrals: Teodoro Saldaña MD [Staff Physician] - 1 Month Chiqui Miller MD [Primary Care Provider] - 2 Weeks Disposition: HOME - Home Medications Comprehensive Discharge Medication List: Ambulatory Orders Aspirin [ASA -] 81 mg PO DAILY 02/03/13 Lisinopril [Prinivil -] 40 mg PO DAILY 02/03/13 Metoprolol Tartrate [Lopressor -] 50 mg PO BID 02/03/13 Omeprazole [Prilosec (RX)] 20 mg PO DAILY 02/03/13 Tamsulosin HCl [Flomax -] 0.4 mg PO DAILY 02/03/13 Nifedipine [Nifedical Xl] 30 mg PO DAILY 02/10/15 Atorvastatin Ca [Lipitor] 20 mg PO HS #30 tablet 02/18/15
[2018-03-16] MEDS ORDERED: ASPIRIN 81 MG CHEWABLE TABLETS PO SCH (10:00)
[2018-03-16] MEDS ORDERED: PANTOPRAZOLE 20 MG TABLET (FP) PO SCH (10:00)
[2018-03-16] MEDS ORDERED: NIFEdipine E.R. 30 MG TABLET (FP) PO SCH (10:00)
--- NOTE | 2018-03-16 11:05 | PN ---
Progress Note (short form) - Note Progress Note: 72 year old male , hstory of HTN, HLD. He was at work and his left arm get paralyzed and recovered in 3 minute. He has similar symptoms two months ago. He denies any headhace, seizure, motor weakness any other part of body, no numbness or dysphagia dysarthria or cognitive difficuLTY On admission,ct head is normal, he is not taking statin regularly. He is feeling better, carotid ultrasound is normal Neurological examination afebrile, [place] 6, BP 132/80 , RR 16 Alert oriented x 3, seech and memory is normal CN all intact, eomi, pupils rective, no face asymmetry Motor 5/5 all ext sensation is normal FTN,HTs is normal, sensation is normal ct head unremarkable carotid ultrasound is normal mri of brain done , waiting for official read, to me there is no acute stroke Assessment- TIA, risk factor HLD,HTN Plan - continue aspirin and high dose of statin - life style modificaiotns and stroke education was discussed again I concur with discharge and follow up with me as outpatient Thanking you much Teodoro Saldaña MD
--- NOTE | 2018-03-16 12:45 | EKG ---
Test Reason : Blood Pressure : / mmHG Vent. Rate : 103 BPM Atrial Rate : 103 BPM P-R Int : 154 ms QRS Dur : 080 ms QT Int : 334 ms P-R-T Axes : 040 064 044 degrees QTc Int : 437 ms SINUS TACHYCARDIA WHEN COMPARED WITH ECG OF 17-FEB-2015 15:05, NO SIGNIFICANT CHANGE WAS FOUND Confirmed by CAMILLE FRANCO MD ([id number]) on 03/16/2018 12:45:32 PM Referred By: Confirmed By:CAMILLE FRANCO MD
== END 2018-03-16 13:50 | disposition home or self-care (01) ==
LOC: JER 11:29 → JERBED 13:39 → J4S 23:20
PROVIDERS: ADMIT Internal Medicine; ATTEND Internal Medicine
PROC: 3E0337Z Introduction of Electrolytic and Water Balance Substance into Peripheral Vein, Percutaneous Approach (ICD-10-PCS; principal; 2018-03-15)
DX: G45.9 Transient cerebral ischemic attack, unspecified (principal); I10 Essential (primary) hypertension; E78.5 Hyperlipidemia, unspecified; N40.0 Benign prostatic hyperplasia without lower urinary tract symptoms; E66.8 Other obesity; Z68.31 Body mass index [BMI] 31.0-31.9, adult
CPT/HCPCS: 36415; 70450-TC; 70551-TC; 80053; 81003; 82465; 82550; 82553; 82962; 83036; 83718; 83721; 84443; 84478; 84484; 85025; 85610; 86850; 86900; 86901; 93005; 93010; 93306-TC; 93880-TC; 99285-25; G0378; J7030

== ENCOUNTER 2021-08-03 13:09 | Emergency (ER) | payer MEDICARE ==
[2021-08-03 13:23] VITALS: BMI 31.7
[2021-08-03] MEDS ORDERED: SODIUM CHLORIDE 0.9% 500 ML INFUS.BAG IV ONE (14:53)
[2021-08-03] MEDS ORDERED: FAMOTIDINE 20 MG/50 ML IVPB 20 MG/50 ML MG IVPB ONE ×2 (14:53→15:10)
[2021-08-03 16:05] LABS: ALBUMIN 3.4 g/dl (3.4-5.0); BLOOD UREA NITROGEN 14.1 mg/dL (7-18); CALCIUM 8.9 mg/dL (8.5-10.1)
[2021-08-03 16:08] LABS: CREATININE 0.7 mg/dL (0.55-1.3)
[2021-08-03 16:10] LABS: BILIRUBIN,TOTAL 0.3 mg/dL (0.2-1); TOT PROT 6.4 g/dl (6.4-8.2)
[2021-08-03 16:17] LABS: HEMATOCRIT 37.2 % (35.4-49); HEMOGLOBIN 12.8 GM/dL (11.7-16.9); LYMPH % 22.4 % (8-40); MCH 31.1 pg (25.7-33.7); MCHC 34.5 g/dl (32.0-35.9); MEAN CELL VOLUME 90.2 fl (80-96); MEAN PLT VOLUME 7.7 fl (7.5-11.1); MONO % 10.2 % (3.8-10.2); NEUT % 61.4 % (42.8-82.8); PLATELET COUNT 237 10^3/uL (134-434); RBC 4.12 M/mm3 (4.00-5.60); RDW 13.2 % (11.9-15.9); WHITE BLOOD COUNT 4.1 K/mm3 (4.0-10.0)
[2021-08-03 16:50] LABS: URINE APPEARANCE CLEAR; URINE BILIRUBIN NEGATIVE (NEGATIVE); URINE COLOR YELLOW; URINE GLUCOSE (UA) NEGATIVE (NEGATIVE); URINE KETONE NEGATIVE (NEGATIVE); URINE LEUK ESTERASE NEGATIVE (NEGATIVE); URINE NITRITE NEGATIVE (NEGATIVE); URINE PROTEIN NEGATIVE (NEGATIVE); URINE UROBILINOGEN 0.2 mg/dL (0.2-1.0)
[2021-08-03] MEDS ORDERED: ENOXAPARIN NA (PORCINE) 80 MG/0.8 ML DISP.SYRIN SQ ONE (18:17)
[2021-08-03] MEDS ORDERED: ENOXAPARIN NA (PORCINE) 100 MG/1 ML DISP.SYRIN SQ ONE (18:51)
[2021-08-03 20:50] VITALS: BP 163/83; PULSE 72; TEMP 98.8
== END 2021-08-03 20:50 | disposition short-term general hospital (02) ==
LOC: JER 13:09
PROC: 3E033GC Introduction of Other Therapeutic Substance into Peripheral Vein, Percutaneous Approach (ICD-10-PCS; principal; 2021-08-03)
PROC: 3E023GC Introduction of Other Therapeutic Substance into Muscle, Percutaneous Approach (ICD-10-PCS; principal; 2021-08-03)
DX: I82.890 Acute embolism and thrombosis of other specified veins (principal); K76.89 Other specified diseases of liver; K86.89 Other specified diseases of pancreas; R59.9 Enlarged lymph nodes, unspecified
CPT/HCPCS: 36415; 74177-TC; 80053; 81003; 83690; 85025; 99285-25; Q9967